=== PATIENT | female | born 1970 | race Hispanic/Latino ===

== ENCOUNTER 2018-10-11 16:38 | Emergency (ER) | payer SELFPAY ==
[2018-10-11] MEDS ORDERED: METOPROLOL TAR 50 MG TAB ONE (17:44)
[2018-10-11] MEDS ORDERED: LISINOPRIL 10 MG TAB ONE (17:45)
[2018-10-11] MEDS ORDERED: METOPROLOL TARTRATE 5 MG/5 ML INJ IV ONE (17:45)
[2018-10-11 17:51] LABS: Basophils % 1.1 % (0-1.3); Hematocrit 36.5 % (36.0-45.0); Lymphocytes % 34.4 % (15.3-44.8); MPV 7.9 fL (7.6-11.3); RBC Red Blood Cell Count 4.33 M/uL (3.86-4.86)
[2018-10-11 17:53] LABS: Protime INR 0.99
--- NOTE | 2018-10-11 17:59 | RAD REPORT ---
EXAM DESCRIPTION: CT - Head Brain Wo Cont - 10/11/2018 5:40 pm CLINICAL HISTORY: Headache COMPARISON: None. TECHNIQUE: Axial 5 mm thick images of the head were obtained without IV contrast. All CT scans are performed using dose optimization technique as appropriate and may include automated exposure control or mA/KV adjustment according to patient size. FINDINGS: No intracranial hemorrhage, mass, edema or shift of mid-line structures. No acute infarcti on changes seen. No abnormal extra-axial fluid collections. Ventricles are normal. Mastoid air cells and visualized portions of the paranasal sinuses are clear. There is a focal round defect in the left frontal bone that extends from outer table the inner table. There is no associated soft tissue mass. This has the appearance of a defect created for a ventricul ostomy tube. This can be correlated with history. Pathologic bone destructive process is unlikely. IMPRESSION: No hemorrhage, mass or other acute intracranial finding. Left frontal lobe bone defect has the appearance of ventriculostomy tube defect or similar postsurgic al Procedure. This can be correlated with clinical history. No associated soft tissue mass component and an aggressive or neoplastic origin for the defect is not suspected.
[2018-10-11 18:04] LABS: ALT/SGPT 38 U/L (12-78); AST/SGOT 24 U/L (15-37); Albumin 3.2 g/dL (3.4-5.0); Alkaline Phosphatase 109 U/L (45-117); BUN Blood Urea Nitrogen 12 mg/dL (7-18); Bicarbonate 27 mmol/L (21-32); Bilirubin Direct 0.1 mg/dL (0-0.2); Bilirubin Total 0.5 mg/dL (0.2-1.0); Glucose Level 97 mg/dL (74-106); Lipase 58 U/L (73-393); Magnesium 2.1 mg/dL (1.8-2.4); NT PRO-BNP 53 pg/mL (<125); Potassium 3.6 mmol/L (3.5-5.1); Sodium Level 140 mmol/L (136-145); Troponin (Emerg Dept Use Only) < 0.02 ng/mL (0.0-0.045)
--- NOTE | 2018-10-11 18:23 | ER ---
Nurse's Notes [facility] Name: Shy Plascencia Age: 47 yrs Sex: Female : 1970 Arrival Date: 10/11/2018 Time: 16:41 Bed 30 Private MD: Diagnosis: Essential (primary) hypertension;Headache Presentation: 10/11 16:42 Presenting complaint: Child states: she had HBP- 180/110; 199/108; we checked it at [facility]'; reports headache and nausea; reports dizziness;. Transition of care: patient was not received from another setting of care. Onset of symptoms was October 11, 2018. Risk Assessment: Do you want to hurt yourself or someone else? Patient reports no desire to harm self or others. Initial Sepsis Screen: Does the patient meet any 2 criteria? No. Patient's initial sepsis screen is negative. Does the patient have a suspected source of infection? No. Patient's initial sepsis screen is negative. Care prior to arrival: None. 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 - Social history:: Smoking status: unknown. - Family history:: not pertinent. - Ebola Screening: : No symptoms or risks identified at this time. Screenin:51 Abuse screen: Denies threats or abuse. Denies injuries from another. Nutritional rv screening: No deficits noted. Tuberculosis screening: No symptoms or risk factors identified. Fall Risk None identified. Assessment: 17:50 General: Appears in no apparent distress. comfortable, Behavior is calm, cooperative. rv Pain: Complains of pain in head and lower back. Neuro: Level of Consciousness is awake, alert, obeys commands, Oriented to person, place, time, situation. Cardiovascular: Patient's skin is warm and dry. Respiratory: Airway is patent. GI: No signs and/or symptoms were reported involving the gastrointestinal system. : No signs and/or symptoms were reported regarding the genitourinary system. EENT: No signs and/or symptoms were reported regarding the EENT system. Derm: Skin is intact. Musculoskeletal: No signs and/or symptoms reported regarding the musculoskeletal system. Vital Signs: 16:44 BP 215 / 98; Pulse 81; Resp 16; Temp 98.9; Pulse Ox 99% on R/A; Weight 104.33 kg; hj Height 5 ft. 4 in. (162.56 cm); Pain 7/10; 17:47 BP 163 / 78; Pulse 70; Resp 16; Pulse Ox 97% on R/A; rv 18:00 BP 149 / 74; Pulse 71; Resp 15; Pulse Ox 97% on R/A; rv 18:48 BP 145 / 71; Pulse 69; Resp 16; Temp 98.4; Pulse Ox 99% on R/A; rv 16:44 Body Mass Index 39.48 (104.33 kg, 162.56 cm) hj ED Course: 16:41 Patient arrived in ED. rg4 16:43 Triage completed. hj 16:44 Arm band placed on left wrist. hj 17:08 Ayaz Blake MD is Attending Physician. gloria 17:28 Cj Hill, KEITH is Primary Nurse. rv 17:[address] via wheelchair. vm2 17:39 CT completed. Patient tolerated procedure well. Patient moved back from CT. nj 17:43 CT Head Brain wo Cont In Process Unspecified. EDMS 17:50 Inserted saline lock: 22 gauge in right forearm, using aseptic technique. Blood rv collected. 17:51 Patient has correct armband on for positive identification. Bed in low position. Call rv light in reach. Side rails up X 1. Adult w/ patient. loin trimmer on. Pulse ox on. NIBP on. 17:57 EKG done, by restaurant maintenance technician. reviewed by Ayaz Blake MD. sm3 18:22 Ramón Morris MD is Referral Physician. gloria 18:25 XRAY Chest (1 view) In Process Unspecified. EDMS 18:48 No provider procedures requiring assistance completed. IV discontinued, intact, rv bleeding controlled, No redness/swelling at site. Pressure dressing applied. Administered Medications: 18:00 Drug: Lopressor (metoprolol TARTRATE) 50 mg Route: PO; rv 18:49 Follow up: Response: No adverse reaction rv 18:00 Drug: Lisinopril 10 mg Route: PO; rv 18:49 Follow up: Response: No adverse reaction rv 18:24 CANCELLED (Duplicate Order): Lopressor 5 mg IVP once; Hold for SBP <100 or HR <60. gloria Outcome: 18:23 Discharge ordered by . gloria 18:49 Discharged to home ambulatory. rv 18:49 Condition: good 18:49 Discharge instructions given to patient, Instructed on discharge instructions, follow up and referral plans. medication usage, Demonstrated understanding of instructions, follow-up care, medications, Prescriptions given X 2. 18:49 Patient left the ED. rv Signatures: Dispatcher [employer] EDMS Ayaz Blake MD MD cha Joaquin, Henry, RN RN Radha Zarate rg4 Davion Jones Victoria 2 Ashly Heath 3 Cj Hill, KEITH RN rv Corrections: (The following items were deleted from the chart) 16:47 16:42 Acuity: VIC 3 hj hj 16:47 16:44 Pulse 81bpm; Resp 16bpm; Pulse Ox 99% RA; Temp 98.9F; 104.33 kg; Height 5 ft. 4 hj in.; BMI: 39.4; Pain 7/10; hj
--- NOTE | 2018-10-11 18:24 | EDPHYS ---
Physician Documentation [facility] Name: Shy Plascencia Age: 47 yrs Sex: Female : 1970 Arrival Date: 10/11/2018 Time: 16:41 Bed 30 Private MD: ED Physician Ayaz Blake HPI: 10/11 17:28 This 47 yrs old Female presents to ER via Ambulatory with complaints of High gloria Blood Pressure. 17:28 The patient has elevated blood pressure and discovered this at home, with a home gloria device, at [facility]. Onset: The symptoms/episode began/occurred this morning, today. Modifying factors: The symptoms are aggravated by activity, The symptoms are alleviated by remaining still. Associated signs and symptoms: Pertinent positives: headache, nausea, vomiting. Severity of symptoms: At its worst the blood pressure was moderate, in the emergency department the blood pressure is unchanged. The patient has experienced similar episodes in the past, several times. 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 - Social history:: Smoking status: unknown. - Family history:: not pertinent. - Ebola Screening: : No symptoms or risks identified at this time. ROS: 17:28 Constitutional: Negative for fever, chills, and weight loss, Eyes: Negative for injury, gloria pain, redness, and discharge, ENT: Negative for injury, pain, and discharge, Neck: Negative for injury, pain, and swelling, Cardiovascular: Negative for chest pain, palpitations, and edema, Respiratory: Negative for shortness of breath, cough, wheezing, and pleuritic chest pain, Abdomen/GI: Negative for abdominal pain, nausea, vomiting, diarrhea, and constipation, Back: Negative for injury and pain, : Negative for injury, bleeding, discharge, and swelling, MS/Extremity: Negative for injury and deformity, Skin: Negative for injury, rash, and discoloration, Neuro: Negative for headache, weakness, numbness, tingling, and seizure, Psych: Negative for depression, anxiety, suicide ideation, homicidal ideation, and hallucinations, Endocrine: Negative for neck swelling, polydipsia, polyuria, polyphagia, and marked weight changes, Hematologic/Lymphatic: Negative for swollen nodes, abnormal bleeding, and unusual bruising. Exam: 17:29 Constitutional: This is a well developed, well nourished patient who is awake, alert, gloria and in no acute distress. Head/Face: Normocephalic, atraumatic. Eyes: Pupils equal round and reactive to light, extra-ocular motions intact. Lids and lashes normal. Conjunctiva and sclera are non-icteric and not injected. Cornea within normal limits. Periorbital areas with no swelling, redness, or edema. ENT: Nares patent. No nasal discharge, no septal abnormalities noted. Tympanic membranes are normal and external auditory canals are clear. Oropharynx with no redness, swelling, or masses, exudates, or evidence of obstruction, uvula midline. Mucous membranes moist. Neck: Trachea midline, no thyromegaly or masses palpated, and no cervical lymphadenopathy. Supple, full range of motion without nuchal rigidity, or vertebral point tenderness. No Meningismus. Chest/axilla: Normal chest wall appearance and motion. Nontender with no deformity. No lesions are appreciated. Cardiovascular: Regular rate and rhythm with a normal S1 and S2. No gallops, murmurs, or rubs. Normal PMI, no JVD. No pulse deficits. Respiratory: Lungs have equal breath sounds bilaterally, clear to auscultation and percussion. No rales, rhonchi or wheezes noted. No increased work of breathing, no retractions or nasal flaring. Abdomen/GI: Soft, non-tender, with normal bowel sounds. No distension or tympany. No guarding or rebound. No evidence of tenderness throughout. Back: No spinal tenderness. No costovertebral tenderness. Full range of motion. Female : Normal external genitalia. Skin: Warm, dry with normal turgor. Normal color with no rashes, no lesions, and no evidence of cellulitis. MS/ Extremity: Pulses equal, no cyanosis. Neurovascular intact. Full, normal range of motion. Neuro: Awake and alert, GCS 15, oriented to person, place, time, and situation. Cranial nerves II-XII grossly intact. Motor strength 5/5 in all extremities. Sensory grossly intact. Cerebellar exam normal. Normal gait. Psych: Awake, alert, with orientation to person, place and time. Behavior, mood, and affect are within normal limits. Vital Signs: 16:44 BP 215 / 98; Pulse 81; Resp 16; Temp 98.9; Pulse Ox 99% on R/A; Weight 104.33 kg; hj Height 5 ft. 4 in. (162.56 cm); Pain 7/10; 17:47 BP 163 / 78; Pulse 70; Resp 16; Pulse Ox 97% on R/A; rv 18:00 BP 149 / 74; Pulse 71; Resp 15; Pulse Ox 97% on R/A; rv 18:48 BP 145 / 71; Pulse 69; Resp 16; Temp 98.4; Pulse Ox 99% on R/A; rv 16:44 Body Mass Index 39.48 (104.33 kg, 162.56 cm) hj MDM: 17:08 Patient medically screened. [facility] 17:29 Data reviewed: vital signs, nurses notes, lab test result(s), EKG, radiologic studies, [facility] CT scan, plain films. 10/11 17:27 Order name: Basic Metabolic Panel [facility] 10/11 17:27 Order name: CBC with Diff [facility] 10/11 17:27 Order name: LFT's; Complete Time: 18:17 [facility] 10/11 17:27 Order name: Magnesium; Complete Time: 18:17 [facility] 10/11 17:27 Order name: NT PRO-BNP; Complete Time: 18:17 [facility] 10/11 17:27 Order name: PT-INR; Complete Time: 18:17 [facility] 10/11 17:27 Order name: Troponin (emerg Dept Use Only); Complete Time: 18:17 [facility] 10/11 17:27 Order name: XRAY Chest (1 view) [facility] 10/11 17:27 Order name: Lipase; Complete Time: 18:17 [facility] 10/11 17:27 Order name: Urine Culture [facility] 10/11 17:31 Order name: Basic Metabolic Panel; Complete Time: 18:17 [facility] 10/11 17:31 Order name: CBC with Automated Diff; Complete Time: 18:17 [facility] 10/11 18:40 Order name: Urine Dipstick--Ancillary (enter results) 10/11 18:40 Order name: Urine --Ancillary (enter results) 10/11 17:27 Order name: EKG; Complete Time: 17:33 [facility] 10/11 17:27 Order name: Cardiac monitoring [facility] 10/11 17:27 Order name: EKG - Nurse/Tech [facility] 10/11 17:27 Order name: IV Saline Lock [facility] 10/11 17:27 Order name: Labs collected and sent [facility] 10/11 17:27 Order name: O2 Per Protocol [facility] 10/11 17:27 Order name: O2 Sat Monitoring [facility] 10/11 17:27 Order name: CT Head Brain wo Cont; Complete Time: 18:17 [facility] Administered Medications: 18:00 Drug: Lopressor (metoprolol TARTRATE) 50 mg Route: PO; rv 18:49 Follow up: Response: No adverse reaction rv 18:00 Drug: Lisinopril 10 mg Route: PO; rv 18:49 Follow up: Response: No adverse reaction rv 18:24 CANCELLED (Duplicate Order): Lopressor 5 mg IVP once; Hold for SBP <100 or HR <60. [facility] Disposition: 10/11/18 18:23 Discharged to Home. Impression: Essential (primary) hypertension, Headache. - Condition is Stable. - Discharge Instructions: General Headache Without Cause, Hypertension, Hypertension, [id number], How to Take Your Blood Pressure, [id number], Aspirin and Your Heart, General Headache Without Cause, [id number]-[id number], Managing Your Hypertension. - Prescriptions for Toprol XL 25 mg Oral Tablet - take 1 tablet by ORAL route once daily; 20 tablet. Lisinopril 10 mg Oral Tablet - take 1 tablet by ORAL route once daily; 20 tablet. - Medication Reconciliation Form, Thank You Letter, Antibiotic Education, Prescription Opioid Use form. - Follow up: Private Physician; When: 2 - 3 days; Reason: Recheck today's complaints, Continuance of care, Re-evaluation by your physician. Follow up: Ramón Morris MD; When: 2 - 3 days; Reason: Recheck today's complaints, Continuance of care, Re-evaluation by your physician. - Problem is new. - Symptoms have improved. Signatures: Dispatcher [employer] Ayaz Roche MD MD cha Joaquin, Henry RN RN Cj Gonzalez RN RN rv Corrections: (The following items were deleted from the chart) 18:24 17:27 Lopressor 5 mg IVP once; Hold for SBP <100 or HR <60. ordered. [facility] 18:49 18:23 10/11/2018 18:23 Discharged to Home. Impression: Essential (primary) rv hypertension; Headache. Condition is Stable. Forms are Medication Reconciliation Form, Thank You Letter, Antibiotic Education, Prescription Opioid Use. Follow up: Private Physician; When: 2 - 3 days; Reason: Recheck today's complaints, Continuance of care, Re-evaluation by your physician. Follow up: Ramón Morris; When: 2 - 3 days; Reason: Recheck today's complaints, Continuance of care, Re-evaluation by your physician. Problem is new. Symptoms have improved. gloria
[2018-10-11 18:47] LABS: Urine Blood 2+ (NEG); Urine Glucose NEGATIVE (NEG); Urine Protein NEGATIVE (NEG)
--- NOTE | 2018-10-11 19:08 | RAD REPORT ---
EXAM DESCRIPTION: RAD - Chest Single View - 10/11/2018 6:21 pm CLINICAL HISTORY: Headache, nausea, cough COMPARISON: January 2017 TECHNIQUE: AP portable chest image was obtained 1827 hours . FINDINGS: Lungs are clear. Large body habitus accentuates lung markings. Heart and vasculature are n ormal. No measurable pleural effusion and no pneumothorax. No acute bony abnormality seen. No acute a ortic findings suspected. IMPRESSION: No acute cardiopulmonary process.
--- NOTE | 2018-10-12 07:46 | EKG ---
Test Date: 2018-10-11 Test Time: 17:48:55 Core Composer Feeder: HERBIE MEASUREMENT RESULTS: Intervals: Rate: 67 TX: 168 QRSD: 134 QT: 420 QTc: 443 Eagle: P: 49 TX: 168 QRS: 107 T: 76 INTERPRETIVE STATEMENTS: Normal sinus rhythm Right bundle branch block Abnormal ECG Compared to ECG 01/30/2017 18:11:09 Sinus arrhythmia no longer present Electronically Signed On 10-12-18 07:46:06 CDT by Martir Rondon
== END 2018-10-11 18:49 | disposition home or self-care (01) ==
LOC: ER 16:38
DX: I10 Essential (primary) hypertension (principal); R51 Headache; E78.00 Pure hypercholesterolemia, unspecified
CPT/HCPCS: 36415; 70450; 71045; 80048; 80076; 81003; 81025; 83690; 83735; 83880; 84484; 85025; 85610; 87086; 87088; 93005; 99285

== ENCOUNTER 2021-04-26 08:03 | Emergency (ER) | payer SELFPAY ==
[2021-04-26] MEDS ORDERED: FAMOTIDINE 20 MG/2 ML VIAL IV ONE (08:22)
[2021-04-26] MEDS ORDERED: METHYLPREDNISOLONE 125 MG INJ ONE (08:22)
[2021-04-26] MEDS ORDERED: DIPHENHYDRAMINE 50 MG/ML VIAL ONE (08:22)
--- NOTE | 2021-04-26 10:39 | ER ---
Nurse's Notes [facility] Name: Shy Plascencia Age: 50 yrs Sex: Female : 1970 Arrival Date: 04/26/2021 Time: 08:06 Bed 5 Private MD: Diagnosis: Angioneurotic edema Presentation: 04/26 08:14 Chief complaint: Patient states: Woke with swollen upper lip. Coronavirus screen: At [facility] this time, the client does not indicate any symptoms associated with coronavirus-19. Ebola Screen: No symptoms or risks identified at this time. Initial Sepsis Screen: Does the patient meet any 2 criteria? No. Patient's initial sepsis screen is negative. Does the patient have a suspected source of infection? No. Patient's initial sepsis screen is negative. Risk Assessment: Do you want to hurt yourself or someone else? Patient reports no desire to harm self or others. Onset of symptoms was April 26, 2021. 08:14 Method Of Arrival: Ambulatory [facility] 08:14 Acuity: VIC 3 jl7 Triage Assessment: 08:16 General: Appears in no apparent distress. uncomfortable, Behavior is calm, cooperative, jl7 appropriate for age. EENT: Throat is clear. 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 - Social history:: Smoking status: Patient denies any tobacco usage or history of. Screenin:16 Abuse screen: Denies threats or abuse. Nutritional screening: No deficits noted. vg1 Tuberculosis screening: No symptoms or risk factors identified. Fall Risk No fall in past 12 months (0 pts). No secondary diagnosis (0 pts). No IV (0 pts). Ambulatory Aid- None/Bed Rest/Nurse Assist (0 pts). Gait- Normal/Bed Rest/Wheelchair (0 pts) Mental Status- Oriented to own ability (0 pts). Total Gunn Fall Scale indicates No Risk (0-24 pts). Assessment: 08:14 General: Appears in no apparent distress. comfortable, Behavior is calm, cooperative. vg1 Pain: Complains of pain in upper lip Pain currently is 9 out of 10 on a pain scale. Pain began upon wakening this morning. Neuro: Level of Consciousness is awake, alert, obeys commands, Oriented to person, place, time, situation. Cardiovascular: Patient's skin is warm and dry. Respiratory: Airway is patent Respiratory effort is even, unlabored, Breath sounds are clear bilaterally. GI: No signs and/or symptoms were reported involving the gastrointestinal system. : No signs and/or symptoms were reported regarding the genitourinary system. EENT: Throat is clear. Derm: Skin is intact, is healthy with good turgor. Musculoskeletal: Circulation, motion, and sensation intact. Swelling present in upper lip. 10:15 Reassessment: Patient appears in no apparent distress at this time. Patient and/or vg1 family updated on plan of care and expected duration. Pain level reassessed. Patient is alert, oriented x 3, equal unlabored respirations, skin warm/dry/pink. pt states 'pressure of lip feels like a 5/10'. Patient states feeling better. Vital Signs: 08:14 BP 181 / 99; Pulse 71; Resp 17; Temp 98.3; Pulse Ox 98% ; Weight 99.79 kg; Height 5 ft. jl7 3 in. (160.02 cm); Pain 9/10; 08:28 BP 164 / 82; Pulse 64; Resp 16; Pulse Ox 100% ; vg1 09:30 BP 143 / 64; Pulse 73; Resp 16; Pulse Ox 98% on R/A; vg1 10:00 BP 150 / 79; Pulse 68; Resp 16; Pulse Ox 97% on R/A; vg1 08:14 Body Mass Index 38.97 (99.79 kg, 160.02 cm) jl7 ED Course: 08:06 Patient arrived in ED. ds1 08:14 Alex Melgar PA is PHCP. jr8 08:14 Ochoa Donis MD is Attending Physician. jr8 08:14 Greta Staton, RN is Primary Nurse. vg1 08:16 Triage completed. jl7 08:16 Patient has correct armband on for positive identification. Bed in low position. Call vg1 light in reach. Side rails up X 1. Adult w/ patient. 08:16 Arm band placed on right wrist. jl7 08:16 No provider procedures requiring assistance completed. vg1 08:22 Inserted saline lock: 22 gauge in right antecubital area, using aseptic technique. ke1 10:49 IV discontinued, intact, bleeding controlled, No redness/swelling at site. Pressure vg1 dressing applied. Administered Medications: 08:21 Drug: SOLU-Medrol (methylPrednisoLONE) 125 mg Route: IVP; Site: right antecubital; vg1 10:50 Follow up: Response: No adverse reaction; Marked relief of symptoms vg1 08:23 Drug: Benadryl (diphenhydrAMINE) 25 mg Route: IVP; Site: right antecubital; vg1 10:50 Follow up: Response: No adverse reaction; Marked relief of symptoms vg1 08:25 Drug: Pepcid (famotidine) 20 mg Route: IVP; Site: right antecubital; vg1 10:50 Follow up: Response: No adverse reaction; Marked relief of symptoms vg1 Outcome: 10:38 Discharge ordered by . jr8 10:49 Discharged to home ambulatory, with family. vg1 10:49 Condition: good 10:49 Discharge instructions given to patient, family, Instructed on discharge instructions, follow up and referral plans. medication usage, Demonstrated understanding of instructions, follow-up care, medications, Prescriptions given X 1. 10:49 Patient left the ED. vg1 Signatures: Esha Fallon ds1 Aelx Melgar PA PA jr8 Alexus Rasmussen RN RN jl7 Greta Staton RN RN vg1 Juan Blunt RN RN ke1 Corrections: (The following items were deleted from the chart) 08:28 08:14 Derm: Skin is intact, is healthy with good turgor, vg1 vg1 08:28 08:14 Musculoskeletal: Circulation, motion, and sensation intact. vg1 vg1
--- NOTE | 2021-04-26 10:39 | EDPHYS ---
Physician Documentation [facility] Name: Shy Plascencia Age: 50 yrs Sex: Female : 1970 Arrival Date: 04/26/2021 Time: 08:06 Bed 5 Private MD: ED Physician Ochoa Donis HPI: 04/26 08:41 This 50 yrs old Female presents to ER via Ambulatory with complaints of Lips jr8 Swelling. 08:41 Onset: The symptoms/episode began/occurred acutely. Associated signs and symptoms: The jr8 patient has no apparent associated signs or symptoms. Severity of symptoms: At their worst the symptoms were mild, in the emergency department the symptoms are unchanged. The patient has not experienced similar symptoms in the past. The patient has not recently seen a physician. Patient stated that she woke up with swelling to upper lip around 2 am this morning. Has increased since then. On lisinopril but has been on that for about 1 month. Denies any other new meds, lotions, creams, or other products. DIRECTOR HEART: 08:16 LMP N/A - Post-menopause jl7 Historical: - Allergies: 08:16 No Known Allergies; jl7 - Home Meds: 08:16 lisinopril 20 mg Oral tab [Active]; metformin 500 mg oral tab [Active]; jl7 - PMHx: 08:16 High Cholesterol; Hypertension; jl7 - PSHx: 08:16 None; jl7 - Immunization history:: Client reports receiving the 2nd dose of the Covid vaccine, Pfizer. - Social history:: Smoking status: Patient denies any tobacco usage or history of. ROS: 08:41 Eyes: Negative for injury, pain, redness, and discharge, Neck: Negative for injury, jr8 pain, and swelling, Cardiovascular: Negative for chest pain, palpitations, and edema, Respiratory: Negative for shortness of breath, cough, wheezing, and pleuritic chest pain, Abdomen/GI: Negative for abdominal pain, nausea, vomiting, diarrhea, and constipation, Back: Negative for injury and pain, MS/Extremity: Negative for injury and deformity, Skin: Negative for injury, rash, and discoloration, Neuro: Negative for headache, weakness, numbness, tingling, and seizure. 08:41 ENT: Positive for Swelling to upper lip, Negative for difficulty swallowing, difficulty handling secretions, hoarseness. Exam: 08:41 Constitutional: This is a well developed, well nourished patient who is awake, alert, jr8 and in no acute distress. Head/Face: Normocephalic, atraumatic. Eyes: Pupils equal round and reactive to light, extra-ocular motions intact. Lids and lashes normal. Conjunctiva and sclera are non-icteric and not injected. Cornea within normal limits. Periorbital areas with no swelling, redness, or edema. Neck: Trachea midline, no thyromegaly or masses palpated, and no cervical lymphadenopathy. Supple, full range of motion without nuchal rigidity, or vertebral point tenderness. No Meningismus. Cardiovascular: Regular rate and rhythm with a normal S1 and S2. No gallops, murmurs, or rubs. Normal PMI, no JVD. No pulse deficits. Respiratory: Lungs have equal breath sounds bilaterally, clear to auscultation and percussion. No rales, rhonchi or wheezes noted. No increased work of breathing, no retractions or nasal flaring. Skin: Warm, dry with normal turgor. Normal color with no rashes, no lesions, and no evidence of cellulitis. MS/ Extremity: Pulses equal, no cyanosis. Neurovascular intact. Full, normal range of motion. Neuro: Awake and alert, GCS 15, oriented to person, place, time, and situation. Cranial nerves II-XII grossly intact. Motor strength 5/5 in all extremities. Sensory grossly intact. 08:41 ENT: Nose: External nose: no obvious acute abnormality, Nasal septum: is midline, Nasal mucosa: moist, Turbinates: are normal, Mouth: Lips: moist, Swollen upper lip without erythema noted , Oral mucosa: pink and intact, moist, Gums: pink, Tongue: is moist, No swelling of tongue noted , Posterior pharynx: Airway: patent, Uvula: midline, non-edematous, no erythema, swelling, is not appreciated, erythema, is not appreciated. Vital Signs: 08:14 BP 181 / 99; Pulse 71; Resp 17; Temp 98.3; Pulse Ox 98% ; Weight 99.79 kg; Height 5 ft. jl7 3 in. (160.02 cm); Pain 9/10; 08:28 BP 164 / 82; Pulse 64; Resp 16; Pulse Ox 100% ; vg1 09:30 BP 143 / 64; Pulse 73; Resp 16; Pulse Ox 98% on R/A; vg1 10:00 BP 150 / 79; Pulse 68; Resp 16; Pulse Ox 97% on R/A; vg1 08:14 Body Mass Index 38.97 (99.79 kg, 160.02 cm) jl7 MDM: 08:14 Patient medically screened. jr8 10:36 Data reviewed: vital signs, nurses notes. Data interpreted: Pulse oximetry: on room air jr8 is 97 %. Interpretation: normal. Counseling: I had a detailed discussion with the patient and/or guardian regarding: the historical points, exam findings, and any diagnostic results supporting the discharge/admit diagnosis, the need for outpatient follow up, a family practitioner, to return to the emergency department if symptoms worsen or persist or if there are any questions or concerns that arise at home. ED course: Patient has been monitored for last couple of hours. No increase in swelling. Will continue patient on steroids at home. Discussed with family and patient to not take her lisinopril and needs to see PCP. If worse or new symptoms were to arise, to immediately come back to ED for reevaluation. Family and patient good with this . 04/26 08:16 Order name: IV; Complete Time: :8 Administered Medications: 08:21 Drug: SOLU-Medrol (methylPrednisoLONE) 125 mg Route: IVP; Site: right antecubital; vg1 10:50 Follow up: Response: No adverse reaction; Marked relief of symptoms vg1 08:23 Drug: Benadryl (diphenhydrAMINE) 25 mg Route: IVP; Site: right antecubital; vg1 10:50 Follow up: Response: No adverse reaction; Marked relief of symptoms vg1 08:25 Drug: Pepcid (famotidine) 20 mg Route: IVP; Site: right antecubital; vg1 10:50 Follow up: Response: No adverse reaction; Marked relief of symptoms vg1 Disposition Summary: 04/26/21 10:38 Discharge Ordered Location: Home jr8 Problem: new jr8 Symptoms: have improved jr8 Condition: Stable jr8 Diagnosis - Angioneurotic edema jr8 Followup: jr8 - With: Private Physician - When: 1 - 2 days - Reason: Recheck today's complaints, Continuance of care, Re-evaluation by your physician Discharge Instructions: - Discharge Summary Sheet jr8 - Angioedema jr8 Forms: - Medication Reconciliation Form jr8 - Thank You Letter jr8 - Antibiotic Education jr8 - Prescription Opioid Use jr8 - Work release form vg1 Prescriptions: - Prednisone 20 mg Oral Tablet - take 2 tablets by ORAL route once daily for 5 days; 10 tablet; Refills: 0, jr8 Product Selection Permitted Addendum: 04/29/2021 19:04 Co-signature as Attending Physician, Ochoa Donis MD. r n Signatures: Ochoa Donis MD MD rn Alex Melgar PA PA jr8 Alexus Rasmussen RN RN jl7 Greta Staton RN RN vg1
[2021-04-26 11:01] VITALS: TEMP 98.3
[2021-04-26 11:06] VITALS: BP 150/79; O2SAT 97
== END 2021-04-26 10:49 | disposition home or self-care (01) ==
LOC: ER 08:03
DX: T78.3XXA Angioneurotic edema, initial encounter (principal); I10 Essential (primary) hypertension; E78.00 Pure hypercholesterolemia, unspecified
CPT/HCPCS: 96374; 96375; 99283; J1200; J2930

== ENCOUNTER 2022-06-24 13:04 | Observation (INO) | payer SELFPAY ==
--- NOTE | 2022-06-24 14:21 | RAD REPORT ---
EXAM DESCRIPTION: RAD - Chest Single View - 06/24/2022 2:15 pm CLINICAL HISTORY: CHEST PAIN Chest pain. COMPARISON: Chest Single View dated 10/11/2018; Chest Single View dated 01/30/2017; Chest Single View dated 02/13/2016 FINDINGS: Portable technique limits examination quality. The lungs are grossly clear. The heart is normal in size. No displaced fractures. IMPRESSION: No acute intrathoracic process suspected.
[2022-06-24] MEDS ORDERED: ASPIRIN 81 MG CHEWABLE TABLET ONE (14:34)
[2022-06-24] MEDS ORDERED: HYDRALAZINE HCL 20 MG/ML VIAL ONE (14:34)
[2022-06-24 14:52] LABS: Hematocrit 35.3 % (36.0-45.0); Lymphocytes % 30.5 % (15.3-44.8); MCV 80.7 fL (80-100); MPV 7.2 fL (7.6-11.3); RBC Red Blood Cell Count 4.37 M/uL (3.86-4.86)
[2022-06-24 15:03] LABS: Protime INR 0.77
[2022-06-24 15:05] LABS: Potassium 3.5 mEq/L (3.5-5.1); Troponin High Sensitivity 9.4 pg/mL (<58.9)
--- NOTE | 2022-06-24 15:21 | EDPHYS ---
Physician Documentation [facility] Name: Shy Plascencia Age: 51 yrs Sex: Female : 1970 Arrival Date: 06/24/2022 Time: 13:04 Bed 15 Private MD: ED Physician Ochoa Donis HPI: 06/24 13:10 This 51 yrs old Female presents to ER via Ambulatory with complaints of Chest jh7 Pain. 13:10 Onset: The symptoms/episode began/occurred last night. Associated signs and symptoms: jh7 Pertinent positives: chest pain, Pertinent negatives: fever, shortness of breath, vomiting, wheezing. 51-year-old female complains of 9 out of 10 chest pain worsening since last night. Reports that her PCP is Dr. Temple. States that she takes losartan for blood pressure but that her blood pressure has been high at home. Denies any other symptoms. Reports that she was told that she was prediabetic but stopped taking her metformin.. Historical: - Allergies: 13:13 No Known Allergies; ap3 - PMHx: 13:13 High Cholesterol; Hypertension; ap3 - Immunization history:: Client reports receiving the 2nd dose of the Covid vaccine. - Social history:: Smoking status: Patient denies any tobacco usage or history of. ROS: 13:10 Constitutional: Negative for fever, chills, and weight loss, Eyes: Negative for injury, jh7 pain, redness, and discharge, Neck: Negative for injury, pain, and swelling, Respiratory: Negative for shortness of breath, cough, wheezing, and pleuritic chest pain, Abdomen/GI: Negative for abdominal pain, nausea, vomiting, diarrhea, and constipation, Back: Negative for injury and pain, MS/Extremity: Negative for injury and deformity, Skin: Negative for injury, rash, and discoloration, Neuro: Negative for headache, weakness, numbness, tingling, and seizure. 13:10 Cardiovascular: Positive for chest pain, Negative for orthopnea, palpitations. 13:10 All other systems are negative. Exam: 13:10 Head/Face: Normocephalic, atraumatic. Neck: Trachea midline, no thyromegaly or masses jh7 palpated, and no cervical lymphadenopathy. Supple, full range of motion without nuchal rigidity, or vertebral point tenderness. No Meningismus. Cardiovascular: Regular rate and rhythm with a normal S1 and S2. No gallops, murmurs, or rubs. Normal PMI, no JVD. No pulse deficits. Respiratory: Lungs have equal breath sounds bilaterally, clear to auscultation and percussion. No rales, rhonchi or wheezes noted. No increased work of breathing, no retractions or nasal flaring. Abdomen/GI: Soft, non-tender, with normal bowel sounds. No distension or tympany. No guarding or rebound. No evidence of tenderness throughout. Back: No spinal tenderness. No costovertebral tenderness. Full range of motion. Skin: Warm, dry with normal turgor. Normal color with no rashes, no lesions, and no evidence of cellulitis. MS/ Extremity: Pulses equal, no cyanosis. Neurovascular intact. Full, normal range of motion. Neuro: Awake and alert, GCS 15, oriented to person, place, time, and situation. Motor strength 5/5 in all extremities. Sensory grossly intact. Normal gait. 13:10 Constitutional: The patient appears alert, awake, in obvious pain. Vital Signs: 13:11 BP 211 / 87; Pulse 80; Resp 17; Temp 98.1; Pulse Ox 99% ; Weight 98.88 kg; Pain 9/10; ap3 14:40 BP 192 / 83; Pulse 73; Resp 20 S; Pulse Ox 100% on R/A; kc6 15:28 BP 158 / 81; Pulse 78; Resp 24 S; Pulse Ox 100% on R/A; kc6 16:41 BP 177 / 83; Pulse 78; Resp 24 S; Pulse Ox 100% on R/A; kc6 17:37 BP 196 / 85; Pulse 85; Resp 23 S; Pulse Ox 100% on R/A; kc6 18:21 BP 170 / 78; Pulse 78; Resp 22 S; Pulse Ox 99% on R/A; kc6 19:00 BP 156 / 76; Pulse 76; Resp 22; Pulse Ox 99% ; vc1 20:00 BP 156 / 90; Pulse 79; Resp 22; Pulse Ox 98% ; vc1 13:11 Pain Scale: Adult ap3 MDM: 13:09 Patient medically screened. [facility] 15:20 Differential diagnosis: pneumonia Acute TN, non-STEMI, unstable angina, nonspecific jh7 chest pain. Data reviewed: vital signs, nurses notes, lab test result(s), EKG, radiologic studies, plain films. Consideration of Admission/Observation Patient was admitted/placed on observation. Management of patient was discussed with the following: Hospitalist: KANDI Alejandre. I considered the following discharge prescriptions or medication management in the emergency department Medications were administered in the Emergency Department. See MAR. Independent interpretation of the following test(s) in the Emergency Department X-Ray: My interpretation is no acute findings. Historians other than the Patient: Daughter/Son: . Care significantly affected by the following chronic conditions: Hypertension. Scoring Tools HEART Score: Total Score = 5. Counseling: I had a detailed discussion with the patient and/or guardian regarding: the historical points, exam findings, and any diagnostic results supporting the discharge/admit diagnosis, the need for further work-up and treatment in the hospital. Response to treatment: the patient's symptoms have mildly improved after treatment. 06/24 13:19 Order name: Basic Metabolic Panel; Complete Time: 15:08 [facility] 06/24 13:19 Order name: CBC with Diff; Complete Time: 14:55 [facility] 06/24 13:19 Order name: NT PRO-BNP; Complete Time: 15:08 [facility] 06/24 13:19 Order name: PT-INR; Complete Time: 15:08 [facility] 06/24 13:19 Order name: Troponin HS; Complete Time: 15:08 [facility] 06/24 18:47 Order name: Magnesium [facility] 06/24 18:47 Order name: Phosphorus [facility] 06/24 18:47 Order name: T4 Free [facility] 06/24 18:47 Order name: Thyroid Stimulating Hormone [facility] 06/24 18:47 Order name: Urinalysis w/ reflexes [facility] 06/24 18:48 Order name: Basic Metabolic Panel [facility] 06/24 18:48 Order name: Basic Metabolic Panel [facility] 06/24 18:48 Order name: CBC with Automated Diff [facility] 06/24 18:48 Order name: CBC with Automated Diff [facility] 06/24 18:48 Order name: Lipid Profile [facility] 06/24 18:48 Order name: Lipid Profile [facility] 06/24 20:14 Order name: Hemoglobin A1c [facility] 06/24 13:19 Order name: XRAY Chest (1 view); Complete Time: 14:28 [facility] 06/24 18:51 Order name: Echo with Doppler [facility] 06/24 13:19 Order name: EKG; Complete Time: 13:20 [facility] 06/24 18:47 Order name: 60g Consistent Carbohydrate (ADA 1800/1999) [facility] 06/24 18:47 Order name: CONS Physician Consult [facility] 06/24 13:19 Order name: Cardiac monitoring; Complete Time: 14:39 [facility] 06/24 13:19 Order name: EKG - Nurse/Tech; Complete Time: 14:39 [facility] 06/24 13:19 Order name: IV Saline Lock; Complete Time: 14:39 [facility] 06/24 13:19 Order name: Labs collected and sent; Complete Time: 14:39 [facility] 06/24 13:19 Order name: O2 Per Protocol; Complete Time: 14:39 [facility] 06/24 13:19 Order name: O2 Sat Monitoring; Complete Time: 14:39 [facility] 06/24 15:19 Order name: Recheck B/P; Complete Time: 15:28 jh7 EC:10 Rate is 75 beats/min. Rhythm is regular. QRS [place] is Normal. SD interval is normal at [facility] 170 msec. QRS interval is prolonged at 150 msec. QT interval is normal at 418 msec. T waves are Inverted in lead V1. Clinical impression: NSR w/ Non-specific ST/T Changes. Administered Medications: 14:39 Drug: Aspirin PO Chewable Tablet 324 mg Route: PO; [facility] 14:58 Follow up: Response: No adverse reaction [facility] 14:39 Drug: hydrALAZINE IVP 10 mg Route: IVP; Site: right antecubital; [facility] 14:58 Follow up: Response: No adverse reaction; Blood pressure is lowered [facility] 15:16 CANCELLED (Physician Discretion): cloNIDine PO 0.1 mg PO once [facility] 15:34 Not Given (Physician Discretion): Nitroglycerin Sublingual 0.4 mg Sublingual once [facility] Disposition: 06/25 17:15 Co-signature as Attending Physician, Ochoa Donis MD I reviewed the patient's care rn provided by the Advanced Practice Provider and agree with the diagnosis and treatment plan. Disposition Summary: 06/24/22 15:20 Hospitalization Ordered Hospitalization Status: Observation [facility] Provider: Calin Donis [facility] Location: Telemetry/MedSurg (observation) [facility] Condition: Stable [facility] Problem: new [facility] Symptoms: have improved [facility] Bed/Room Type: Standard [facility] Room Assignment: 212(06/24/22 20:42) eb1 Diagnosis - Chest pain, unspecified [facility] - Hypertensive Urgency [facility] Forms: - Medication Reconciliation Form [facility] - SBAR form [facility] Signatures: Dispatcher [employer] EDOchoa Mcdonald MD MD rn Prokisch, Amanda RN RN ap3 Rossy Mcwilliams RN RN eb1 Heidy Gregory FNP WILDLIFE REFUGE SPECIALIST 7 Na Cantu RN RN kc6 Corrections: (The following items were deleted from the chart) 06/24 15:16 15:09 cloNIDine PO 0.1 mg PO once ordered. [place] [id number] 20:42 15:20 [facility] eb1
--- NOTE | 2022-06-24 15:21 | ER ---
Nurse's Notes [facility] Name: Shy Plascencia Age: 51 yrs Sex: Female : 1970 Arrival Date: 06/24/2022 Time: 13:04 Bed 15 Private MD: Diagnosis: Chest pain, unspecified;Hypertensive Urgency Presentation: 06/24 13:11 Chief complaint: Patient states: she started having chest pressure yesterday in the ap3 center of her chest that comes and goes. patient rates the pressure to create pain that is a 9/10 on the pain scale. patient states that when she coughs, it makes it hurts more but doesn't report any recent illness. patient also reports nausea with the chest pain. Coronavirus screen: At this time, the client does not indicate any symptoms associated with coronavirus-19. Ebola Screen: No symptoms or risks identified at this time. Initial Sepsis Screen: Does the patient meet any 2 criteria? No. Patient's initial sepsis screen is negative. Does the patient have a suspected source of infection? No. Patient's initial sepsis screen is negative. Risk Assessment: Do you want to hurt yourself or someone else? Patient reports no desire to harm self or others. Onset of symptoms was June 23, 2022. 13:11 Method Of Arrival: Ambulatory ap3 13:11 Acuity: VIC 2 ap3 Triage Assessment: 13:13 General: Appears in no apparent distress. Behavior is calm, cooperative, appropriate ap3 for age. Pain: Complains of pain in chest Pain does not radiate. Pain currently is 9 out of 10 on a pain scale. Quality of pain is described as pressure, Pain began 1 day ago. Is intermittent, Also complains of nausea. Neuro: Level of Consciousness is awake, alert, obeys commands, Oriented to person, place, time, situation, Speech is normal. Cardiovascular: Reports chest pain, nausea, Patient's skin is warm and dry. Respiratory: Airway is patent Respiratory effort is even, unlabored, Respiratory pattern is regular, symmetrical. Historical: - Allergies: 13:13 No Known Allergies; ap3 - PMHx: 13:13 High Cholesterol; Hypertension; ap3 - Immunization history:: Client reports receiving the 2nd dose of the Covid vaccine. - Social history:: Smoking status: Patient denies any tobacco usage or history of. Screenin:14 Abuse screen: Denies threats or abuse. Nutritional screening: No deficits noted. ap3 Tuberculosis screening: No symptoms or risk factors identified. 14:40 [facility] ED Fall Risk Assessment (Adult) History of falling in the last 3 months, kc6 including since admission No falls in past 3 months (0 pts) Confusion or Disorientation No (0 pts) Intoxicated or Sedated No (0 pts) Impaired Gait No (0 pts) Mobility Assist Device Used No (0 pt) Altered Elimination No (0 pt) Score/Fall Risk Level 0 - 2 = Low Risk Oriented to surroundings, Maintained a safe environment, Educated pt \T\ family on fall prevention, incl call for assistance when getting out of bed, Assessed \T\ reinforced patient's understanding of fall precautions, Hourly rounding (assess needs \T\ fall precautionary measures) done. Assessment: 14:41 General: Appears in no apparent distress. comfortable, Behavior is calm, cooperative, kc6 appropriate for age. Pain: Complains of pain in chest Pain does not radiate. Pain currently is 8 out of 10 on a pain scale. Quality of pain is described as pressure. 15:41 Reassessment: Patient appears in no apparent distress at this time. No changes from kc6 previously documented assessment. Patient and/or family updated on plan of care and expected duration. Pain level reassessed. Patient is alert, oriented x 3, equal unlabored respirations, skin warm/dry/pink. 16:41 Reassessment: Patient appears in no apparent distress at this time. No changes from kc6 previously documented assessment. Patient and/or family updated on plan of care and expected duration. Pain level reassessed. Patient is alert, oriented x 3, equal unlabored respirations, skin warm/dry/pink. 17:36 Reassessment: Stephanie Johnson (daughter) [phone]. kc6 17:41 Reassessment: Patient appears in no apparent distress at this time. No changes from kc6 previously documented assessment. Patient and/or family updated on plan of care and expected duration. Pain level reassessed. Patient is alert, oriented x 3, equal unlabored respirations, skin warm/dry/pink. 20:28 Reassessment: No changes from previously documented assessment. Patient and/or family vc1 updated on plan of care and expected duration. Pain level reassessed. Patient is alert, oriented x 3, equal unlabored respirations, skin warm/dry/pink. Vital Signs: 13:11 BP 211 / 87; Pulse 80; Resp 17; Temp 98.1; Pulse Ox 99% ; Weight 98.88 kg; Pain 9/10; ap3 14:40 BP 192 / 83; Pulse 73; Resp 20 S; Pulse Ox 100% on R/A; kc6 15:28 BP 158 / 81; Pulse 78; Resp 24 S; Pulse Ox 100% on R/A; kc6 16:41 BP 177 / 83; Pulse 78; Resp 24 S; Pulse Ox 100% on R/A; kc6 17:37 BP 196 / 85; Pulse 85; Resp 23 S; Pulse Ox 100% on R/A; kc6 18:21 BP 170 / 78; Pulse 78; Resp 22 S; Pulse Ox 99% on R/A; kc6 19:00 BP 156 / 76; Pulse 76; Resp 22; Pulse Ox 99% ; vc1 20:00 BP 156 / 90; Pulse 79; Resp 22; Pulse Ox 98% ; vc1 13:11 Pain Scale: Adult ap3 ED Course: 13:08 Patient arrived in ED. mr 13:09 Keshawnjoshua Heidy, [facility] jh7 13:09 Ochoa Donis MD is Attending Physician. jh7 13:13 Triage completed. ap3 13:14 Arm band placed on left wrist. ap3 13:14 Patient maintains SpO2 saturation greater than 95% on room air. ap3 14:17 XRAY Chest (1 view) In Process Unspecified. EDMS 14:27 Na Cantu, RN is Primary Nurse. kc6 14:39 Inserted saline lock: 20 gauge in right antecubital area, using aseptic technique. kc6 Blood collected. 14:41 Patient has correct armband on for positive identification. Placed in gown. Bed in low kc6 position. Call light in reach. Side rails up X2. Adult w/ patient. Client placed on continuous cardiac and pulse oximetry monitoring. NIBP monitoring applied. cardiac monitor technician on. 15:19 Calin Donis MD is Hospitalizing Provider. jh7 21:30 No provider procedures requiring assistance completed. Patient did not have IV access vc1 during this emergency room visit. Administered Medications: 14:39 Drug: Aspirin PO Chewable Tablet 324 mg Route: PO; kc6 14:58 Follow up: Response: No adverse reaction kc6 14:39 Drug: hydrALAZINE IVP 10 mg Route: IVP; Site: right antecubital; kc6 14:58 Follow up: Response: No adverse reaction; Blood pressure is lowered kc6 15:16 CANCELLED (Physician Discretion): cloNIDine PO 0.1 mg PO once 7 15:34 Not Given (Physician Discretion): Nitroglycerin Sublingual 0.4 mg Sublingual once 6 Medication: 20:28 VIS not applicable for this client. vc1 Outcome: 15:20 Decision to Hospitalize by Provider. 7 21:30 Admitted to Med/surg accompanied by tech, via wheelchair, room 212. vc1 21:30 Condition: good 21:30 Instructed on 21:46 Patient left the ED. vc1 Signatures: Dispatcher [employer] EDTX Sushma Simon Madhuri Lara RN RN ap3 Elicia Morin RN RN vc1 Heidy Gregory, HUMAN PERFORMANCE CONSULTANT HUMAN PERFORMANCE CONSULTANT 7 Na Cantu, RN RN kc6
[2022-06-24] MEDS ORDERED: ACETAMINOPHEN 325 MG TABLET PO PRN (18:41)
[2022-06-24] MEDS ORDERED: HYDROCODONE/APAP 5/325 MG TAB PO PRN (18:41)
[2022-06-24] MEDS ORDERED: ONDANSETRON 4 MG/2 ML VIAL IV PRN (18:45)
--- NOTE | 2022-06-24 18:50 | P.HP ---
Certification for Inpatient Patient admitted to: Observation With expected LOS: <2 Midnights Patient will require the following post-hospital care: None Practitioner: I am a practitioner with admitting privileges, knowledge of patient current condition, hospital course, and medical plan of care. Services: Services provided to patient in accordance with Admission requirements found in Title 42 Section 412.3 of the Code of Federal Regulations Patient History Date of Service: 06/24/22 Reason for admission: Chest pain History of Present Illness: Patient is a 51-year-old female with a past medical history significant for hypertension, hyperlipidemia, prediabetes who presents with complaint of chest pain located in the substernal chest area onset yesterday. Patient rated pain as 8/10 in severity and described pain as pressure in quality. Patient reported that chest pain has been intermittent. Patient reported associated signs and symptoms of diaphoresis and shortness of breath. Patient denies any other signs and symptoms. Symptoms are aggravated or relieved by nothing. Patient decided to present to the hospital for medical evaluation. 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 - Social History Smoking Status: Never smoker Alcohol use: No CD- Drugs: No Caffeine use: Yes Place of Residence: Home Review of Systems General: Sweats Eyes: Unremarkable ENT: Unremarkable Respiratory: Shortness of Breath Cardiovascular: Chest Pain Gastrointestinal: Unremarkable Genitourinary: Unremarkable Musculoskeletal: Unremarkable Integumentary: Unremarkable Neurological: Unremarkable Lymphatics: Unremarkable Physical Examination - Physical Exam General: Alert, In no apparent distress, Oriented x3, Cooperative HEENT: Atraumatic, PERRLA, Mucous membr. moist/pink, EOMI, Sclerae nonicteric Neck: Supple, 2+ carotid pulse no bruit, No LAD, Without JVD or thyroid abn ormality Respiratory: Clear to auscultation bilaterally, Normal air movement Cardiovascular: No edema, Regular rate/rhythm, Normal S1 S2 Capillary refill: <2 Seconds Gastrointestinal: Normal bowel sounds, Soft and benign, No tenderness Musculoskeletal: No clubbing, No swelling, No tenderness Integumentary: No rashes, No significant lesion, No tenderness/swelling Neurological: Normal gait, Normal speech, Normal strength at 5/5 x4 extr, Normal tone, Normal affect Lymphatics: No axilla or inguinal lymphadenopathy - Studies Laboratory Data (last 24 hrs) 06/24/22 14:36: PT 9.3, INR 0.77 06/24/22 14:36: WBC 9.80, Hgb 11.2 L, Hct 35.3 L, Plt Count 336 06/24/22 14:36: Sodium 135 L, Potassium 3.5, BUN 12, Creatinine 0.49 L, Glucose 112 H Assessment and Plan - Plan -- Chest pain. To rule out ACS. Will trend serial troponins--negative so far. Cardiology consulted. Echocardiogram pending to assess cardiac structures and function. Telemetry to monitor for any significant arrhythmia. We will further recommendation from gravel wheeler. -- Hypertensive urgency. Continue home medications and hydralazine as needed. -- Hyperlipidemia. Continue statin. --GERD. Continue Protonix. --Prediabetes. Hemoglobin A1c 6.0. Patient counseled on weight reduction, diet and excise therapy. -- Obesity. Likely secondary to excess calories intake. Patient counseled on weight reduction, diet and excise therapy. --DVT prophylaxis with Lovenox subQ. Discharge Plan: Home Plan to discharge in: Greater than 2 days - Advance Directives Does patient have a Living Will: No Does patient have a Durable POA for Healthcare: No - Code Status/Comfort Care Code Status Assessed: Yes Physician Review: Patient Assessed, Agree with Above Assessment and Plan Critical Care: No
[2022-06-24 19:56] LABS: Phosphorus 3.4 mg/dL (2.5-4.9); Thyroid Stimulating Hormone 2.16 uIU/mL (0.358-3.740)
[2022-06-24] MEDS ORDERED: INSULIN -REGULAR HUMAN 50 UNIT/0.5 ML ML SQ SCH (21:00)
[2022-06-24 21:57] VITALS: BMI 36.3
[2022-06-24] MEDS: ENOXAPARIN 40 MG/0.4 ML SQ SCH (21:59)
[2022-06-24 22:42] LABS: Specific Gravity 1.018 (1.005-1.030); Urine Bilirubin NEGATIVE (Negative); Urine Blood Negative (Negative); Urine Clarity Clear (Clear); Urine Color Light-Yellow (Yellow); Urine Glucose NEGATIVE (Negative); Urine Protein NEGATIVE (Negative); Urine Urobilinogen Normal (Normal); Urine pH 6.5 (5.0-7.0)
[2022-06-24] MEDS: HYDRALAZINE HCL 20 MG/ML VIAL IV PRN (22:47)
[2022-06-25 04:25] LABS: Absolute Lymphocytes (CBC) 2.2 K/uL (0.7-4.9); Hematocrit 34.5 % (36.0-45.0); Lymphocytes % 18.3 % (15.3-44.8); MCV 80.4 fL (80-100); MPV 7.2 fL (7.6-11.3); RBC Red Blood Cell Count 4.29 M/uL (3.86-4.86)
[2022-06-25 04:46] LABS: Potassium 3.7 mEq/L (3.5-5.1)
[2022-06-25 06:34] VITALS: O2SAT 97
--- NOTE | 2022-06-25 06:56 | P.PN ---
Date of Service: 06/25/22 Subjective: Feeling much better today No chest pain reported this morning no new / worsening problems ROS: 10 point ROS as noted above, otherwise negative Physical Exam: GEN: Alert, oriented, NAD HEENT: Normal conjunctiva, sclera anicteric CV: Regular rate and rhythm, no edema Pulm: Nonlabored respirations on room air ABD: Soft, nontender, nondistended MSK: No joint tenderness Integumentary: No rashes Neuro: Normal speech, normal affect vitals reviewed Problem List: Chest pain Hypertension Hyperlipidemia GERD Prediabetes Obesity Chest pain CXR 06/24 - negative trend troponin - negative monitor on Telemetry Cardiology consulted - Stress test planned today 06/25 Echocardiogram pending Hypertension Continue home medications and hydralazine as needed Hyperlipidemia Continue statin GERD Continue Protonix Prediabetes Obesity Hemoglobin A1c 6.0 Patient counseled on weight reduction, diet and excise therapy VTE: Lovenox subQ Code: Full Dispo: Home pending stress test results
[2022-06-25] MEDS ORDERED: REGADENOSON 0.4 MG/5 ML SYR IV ONE (07:38)
[2022-06-25] MEDS ORDERED: POTASSIUM CL SA 10 MEQ TAB PO ONE (09:00)
[2022-06-25] MEDS ORDERED: hydroCHLOROthiazide 25 MG TAB PO SCH (09:00)
[2022-06-25] MEDS ORDERED: LOSARTAN POTASSIUM 50 MG TABLET PO SCH (09:00)
[2022-06-25] MEDS: ENOXAPARIN 40 MG/0.4 ML SQ SCH (09:00)
--- NOTE | 2022-06-25 11:08 | RAD REPORT ---
EXAM DESCRIPTION: NM - Rest Stress Cardiac Imaging - 06/25/2022 10:34 am CLINICAL HISTORY: Chest pain. COMPARISON: 2015 TECHNIQUE: The patient was administered 10. mCi of Tc 99m Sestamibi prior to resting SPECT imaging o f the heart. The patient was then administered 30. MCi of Tc 99m Sestamibi following exercise or pha rmacologic stress. Multiplanar SPECT images were reviewed. FINDINGS: Moderate area of diminished radiotracer uptake involves the apical left ventricular myocar dium on rest and stress sequences. Remainder of the left ventricular myocardium uptake unremarkable. The left ventricular ejection fraction equals 71% IMPRESSION: Moderate apparent fixed perfusion defect apical left ventricular myocardium may represen t physiologic apical thinning or infarction No evidence stress-induced ischemia
--- NOTE | 2022-06-25 13:00 | TREADPHA ---
DX: CHEST PAIN Date of Study: 06/25/12 Ht: 5' 5 " Wt: 218 lb 11.2 oz Consulting Physician: OSCAR MEDICATIONS: TYLENOL, NORCO, LOVENOX, APRESOLINE, HYDRODIURIL, COZAAR, ZOFRAN, KLOR - CON. HISTORY: HYPERTENSION, ATYPICAL CHEST PAIN. DIABETES MELLITUS. PHYSICIAL EXAMINATION: RESTING B.P.: 153/67 RESTING H.R.: 75 RESTING EKG: SINUS RHYTHM, RIGHT BUNDLE BRANCH BLOCK PROTOCOL: LEXISCAN EXERCISE TIME: 3:30 B.P. AT PEAK STRESS: 182/78 IMPRESSION: LEXISCAN INJECTED. CARDIOLITE INJECTED (SEE NUCLEAR MEDICINE REPORT). NO COMPLAINTS OF CHEST PAIN OR SHORTNESS OF BREATH. NO VENTRICULAR TACHYCARDIA OR ARRHTHMIAS NOTED.
--- NOTE | 2022-06-25 13:59 | P.DS ---
Admission Date: 06/24/22 Discharge Date: 06/25/22 Reason for Admission: Chest pain Consultations: Cardiology - Dr. Morris Brief History of Present Illness: 51yo F, PMH: hypertension, hyperlipidemia, prediabetes Patient presents with complaint of chest pain located in the substernal chest area onset yesterday. Patient rated pain as 8/10 in severity and described pain as pressure in quality. Patient reported that chest pain has been intermittent. Patient reported associated signs and symptoms of diaphoresis and shortness of breath. Patient denies any other signs and symptoms. Symptoms are aggravated or relieved by nothing. Patient decided to present to the hospital for medical evaluation. Hospital Course: Problem List: Chest pain Hypertension Hyperlipidemia GERD Prediabetes Obesity Patient presented with chest pain, found to be significantly hypertensive. EKG and troponins were negative. Cardiology was consulted. She had resolution of her chest pain/pressure. Pharmacologic stress test was performed and negative for any stress-induced ischemia. She was restarted on her previous blood pressure medication (losartan-HCTZ) with improvement of her blood pressure. Cardiology recommended follow up as outpatient. Patient deemed stable for discharge home with prescription for blood pressure medication. Recommend daily blood pressure checks at home and keeping a log. Take this log to primary care physician and Cardiology for further adjustments to medications if needed. Continue other home medications. Physical Exam: GEN: Alert, oriented, NAD HEENT: Normal conjunctiva, sclera anicteric CV: Regular rate and rhythm, no edema Pulm: Nonlabored respirations on room air ABD: Soft, nontender, nondistended MSK: No joint tenderness Neuro: Normal speech, normal affect Vital Signs/Physical Exam: Temp Pulse Resp BP Pulse Ox 97.4 F 79 16 169/88 H 98 06/25/22 08:00 06/25/22 08:00 06/25/22 08:00 06/25/22 08:00 06/25/22 08:00 Laboratory Data at Discharge: WBC 12.00 thou/uL (4.3-10.9) H 06/25/22 04:01 Hgb 11.0 g/dL (12.0-15.0) L 06/25/22 04:01 Hct 34.5 % (36.0-45.0) L 06/25/22 04:01 Plt Count 332 thou/uL (152-406) 06/25/22 04:01 PT 9.3 SECONDS (9.2-12.8) 06/24/22 14:36 INR 0.77 06/24/22 14:36 Sodium 136 mEq/L (136-145) 06/25/22 04:01 Potassium 3.7 mEq/L (3.5-5.1) 06/25/22 04:01 BUN 13 mg/dL (7-18) 06/25/22 04:01 Creatinine 0.53 mg/dL (0.55-1.02) L 06/25/22 04:01 Glucose 129 mg/dL (74-106) H 06/25/22 04:01 Phosphorus 3.4 mg/dL (2.5-4.9) 06/24/22 14:36 Magnesium 2.0 mg/dL (1.6-2.4) 06/24/22 14:36 Triglycerides 141 mg/dL (<150) 06/25/22 04:01 Cholesterol 130 mg/dL (<200) 06/25/22 04:01 HDL Cholesterol 46 mg/dL (40-60) 06/25/22 04:01 Cholesterol/HDL Ratio 2.83 06/25/22 04:01 Home Medications: Losartan/Hydrochlorothiazide [Losartan-Hctz 100-25 mg Tab] 1 tab PO DAILY 30 Days #30 tab 06/25/22 Metformin ER [Glucophage ER*] 500 mg PO BID 06/25/22 New Medications: Losartan/Hydrochlorothiazide [Losartan-Hctz 100-25 mg Tab] 1 tab PO DAILY 30 Days #30 tab Physician Discharge Instructions: Patient presented with chest pain, found to be significantly hypertensive. EKG and troponins were negative. Cardiology was consulted. She had resolution of her chest pain/pressure. Pharmacologic stress test was performed and negative for any stress-induced ischemia. She was restarted on her previous blood pressure medication (losartan-HCTZ) with improvement of her blood pressure. Cardiology recommended follow up as outpatient. Patient deemed stable for discharge home with prescription for blood pressure medication. Recommend daily blood pressure checks at home and keeping a log. Take this log to primary care physician and Cardiology for further adjustments to medications if needed. Continue other home medications. Followup: NONE,NONE [Primary Care Provider] - Time spent managing pt's care (in minutes): 45
[2022-06-25] MEDS: HYDRALAZINE HCL 20 MG/ML VIAL IV PRN (14:01)
[2022-06-25 14:36] VITALS: BP 183/95; TEMP 97.9
--- NOTE | 2022-06-25 16:47 | EKG ---
Test Date: 2022-06-24 Test Time: 14:46:30 Equipment Analyst: MARIOLA MEASUREMENT RESULTS: Intervals: Rate: 75 NV: 170 QRSD: 150 QT: 418 QTc: 466 [place]: P: 44 NV: 170 QRS: 107 T: 35 INTERPRETIVE STATEMENTS: Normal sinus rhythm Right bundle branch block Abnormal ECG Compared to ECG 10/11/2018 17:48:55 No significant changes Electronically Signed On 06-25-22 16:46:29 CDT by Perez Albert
--- NOTE | 2022-06-25 20:10 | CON ---
Date of Consultation: 06/25/2022 Reason For Consultation: Chest pain and hypertension. History Of Present Illness: Ms. Plascencia is 51. Has a history of diabetes, hypertension, dyslipidemi a, came in hypertensive with chest pain that she graded at 9/10, but it was sharp, stabbing, left-constance ed, nonradiating, nonexertional and lasted for about 10 minutes. No nausea, vomiting, diaphoresis, P ND, orthopnea, pedal edema, palpitations, or syncope. She had a normal heart catheterization in 2016 . Workup so far is negative. She is pain-free now. Allergies: SHE IS ALLERGIC TO LISINOPRIL. Medications: At home include metformin and Protonix. Review of Systems: Negative. Social History: Negative. Family History: Negative. Physical Examination: Vital Signs: Stable, afebrile. HEENT: Negative. Neck: Supple with no bruit. Chest: Clear to auscultation and percussion. Cardiac: Normal. Abdomen: Benign. Extremities: Revealed no clubbing, cyanosis, or edema. Diagnostic Data: Within normal limit. Impression And Plan: The patient with high risk factors from a heart standpoint including high blood pressure, diabetes, dyslipidemia. She had, however, a normal heart catheterization in 2016 and I wi ll recommend do an echocardiogram and a stress test before making any further decisions. Continue pr esent regimen. I think the chest pain is atypical and sounds more pleuritic. Her diabetes, hyperten blanca, and dyslipidemia are fairly well controlled for now. She is not on any high blood pressure med icine. We may want to consider an RENETTA inhibitor. PARVEEN/KELLEY Voice ID: [id number] Report ID: [id number]
--- NOTE | 2022-06-26 09:11 | ECHO ---
HEIGHT: 5 ft 5 in WEIGHT: 218 lb 11.2 oz DATE OF STUDY: 06/25/[address]: Eva Woodard 2-DIMENSIONAL: YES M.MODE: YES DOPPLER: YES COLOR FLOW: YES TDS: YES PORTABLE: YES DEFINITY: NO BUBBLE STUDY: NO DIAGNOSIS: CHEST PAIN CARDIAC HISTORY: CATHERIZATION: NO SURGERY: NO PROSTHETIC VALVE: NO PACEMAKER: NO MEASUREMENTS (cm) DIASTOLIC (NORMALS) SYSTOLIC (NORMALS) IVSd 1.3 (0.6-1.2) LA Diam 3.2 (1.9-4.0) LVEF 65% LVIDd 3.8 (3.5-5.7) LVIDs 2.4 (2.0-3.5) %FS 35% LVPWd 1.3 (0.6-1.2) Ao Diam 2.8 (2.0-3.7) 2 DIMENSIONAL ASSESSMENT: RIGHT ATRIUM: NORMAL LEFT ATRIUM: NORMAL RIGHT VENTRICLE: NORMAL LEFT VENTRICLE: LVH TRICUSPID VALVE: NORMAL MITRAL VALVE: NORMAL PULMONIC VALVE: NOT SEEN WELL AORTIC VALVE: NORMAL PERICARDIAL EFFUSION: NONE AORTIC ROOT: NORMAL LEFT VENTRICULAR WALL MOTION: NORMAL DOPPLER/COLOR FLOW: SEE BELOW. COMMENTS: 1. NORMAL LEFT VENTRICULAR EJECTION FRACTION 60-65%. 2. NORMAL WALL MOTION. 3. MODERATE CONCENTRIC LEFT VENTRICULAR HYPERTROPHY. 4. POOR WINDOWS. TECHNOLOGIST: Estela SIMPSON
== END 2022-06-25 16:04 | disposition home or self-care (01) ==
LOC: ER 13:04 → ERHOLD 18:40 → 2ND 20:51
PROVIDERS: ADMIT Hospitalist; ATTEND Hospitalist
DX: R07.9 Chest pain, unspecified (principal); I16.0 Hypertensive urgency; K21.9 Gastro-esophageal reflux disease without esophagitis; R73.03 Prediabetes; E66.9 Obesity, unspecified; Z68.36 Body mass index [BMI] 36.0-36.9, adult; Z88.8 Allergy status to other drugs, medicaments and biological substances
CPT/HCPCS: 36415; 71045; 78452; 80048; 80061; 81003; 82947; 83036; 83735; 83880; 84100; 84439; 84443; 84484; 85025; 85610; 93005; 93017; 93306; 96374; 99285; A9500; G0378; J0360; J1650; J2785